=== PATIENT | male | born 1995 | race Caucasian/White ===

== ENCOUNTER 2023-01-30 23:01 | Emergency (ER) | payer MEDICARE, OTHER ==
[~2023-01-30 23:01] MED LIST: AMITRIPTYLINE H25 MG PO; CLONIDINE HCL0.1 MG; DEPAKOTE125 MG; WELLBUTRIN SR150 MG PO
--- OUTSIDE RECORDS SUMMARY | 2023-01-30 23:04 | XMS ---
PreManage Notification: NEELIMA TELLO Security Genomics Scientist Events No recent Security Events currently on file CRITERIA MET - RODNEYP CARE PROVIDERS -Zeeshan- Dentist: Registered Nurse Step Down [facility] PHONE: [phone] NADER WEST Nurse Practitioner: Family Current PHONE: Unknown Yi Gomez-Fern Nurse Practitioner: Current PHONE: [phone] Diego has no Care Guidelines for this patient. E.D. VISIT COUNT (12 MO.) 1 CHERELLE Rios TOTAL 1 NOTE: Visits indicate total known visits. ED/UCC VISIT TRACKING (12 MO.) 01/30/2023 23:02 CHERELLE Watson OR TYPE: Emergency COMPLAINT: - SOB AND NUMB HANDS AND FEET INPATIENT VISIT TRACKING (12 MO.) No inpatient visits to display in this time frame [email or web address]
[2023-01-30] MEDS ORDERED: PROPRANOLOL HCL10 MG PO (23:12)
[2023-01-30] MEDS ORDERED: DIAZEPAM2 MG PO (23:35)
[2023-01-31 00:10] VITALS: BP 134/87
--- NOTE | 2023-01-31 22:54 | EKG ---
[facility] [address] [facility] [place] [address] Signed Normal sinus rhythm Normal ECG No previous ECGs available Confirmed by Stephen Bowden MD () on 01/31/2023 10:54:46 PM Electronically Signed By: STEPHEN BOWDEN MD 01/31/23 2254 PATIENT NAME: NEELIMA TELLO Electrocardiogram DATE OF : [birth year] PHYSICIAN: STEPHEN BOWDEN MD REPORT #: [id number] REPORT IS CONFIDENTIAL AND NOT TO BE RELEASED WITHOUT AUTHORIZATION
== END 2023-01-31 00:11 | disposition home or self-care (01) ==
LOC: ED 23:01
DX: F41.0 Panic disorder [episodic paroxysmal anxiety] (principal); Z79.899 Other long term (current) drug therapy
CPT/HCPCS: 93005; 93010; 99283-25

== ENCOUNTER 2023-07-28 18:21 | Observation (INO) | payer MEDICARE, OTHER ==
[~2023-07-28] VITALS: Ht 172.7 cm; Wt 87.0 kg
[~2023-07-28 18:21] MED LIST changes: +DIAZEPAM2 MG PO; +PROPRANOLOL HCL10 MG PO
--- OUTSIDE RECORDS SUMMARY | 2023-07-28 18:24 | XMS ---
PreManage Notification: NEELIMA TELLO Security Hand Screen Printer Events No recent Security Events currently on file CRITERIA MET - PDMP CARE PROVIDERS -Wendy Dentist: Cocoa Bean Roaster [facility] PHONE: [phone] NADER WEST Nurse Practitioner: Family Current PHONE: Unknown Yi Gomez Nurse Practitioner: Family Current GREEN MARKETER-C PHONE: [phone] Diego has no Care Guidelines for this patient. E.D. VISIT COUNT (12 MO.) 2 CHERELLE Rios TOTAL 2 NOTE: Visits indicate total known visits. ED/UCC VISIT TRACKING (12 MO.) 07/28/2023 18:21 [facility] Watson OR TYPE: Emergency COMPLAINT: - STOMACH PAIN 01/30/2023 23:02 CH[facility]LE Watson OR TYPE: Emergency COMPLAINT: - SOB AND NUMB HANDS AND FEET DIAGNOSES: - Anxiety disorder, unspecified - Other rat exterminator (current) drug therapy - Panic disorder [episodic paroxysmal anxiety] INPATIENT VISIT TRACKING (12 MO.) No inpatient visits to display in this time frame [email or web address]
[2023-07-28 20:06] LABS: BASOPHILS 0.2 % (0-2); EOSINOPHILS 1.3 % (0-6); HEMATOCRIT 42.8 % (35.0-50.0); HEMOGLOBIN 14.7 g/dL (12.0-18.0); LYMPHOCYTES 21.1 % (24-44); MCH 29.6 (27-36); MCHC 34.3 g/dl (30-36); MCV 86.4 fl (81-99); MONOCYTES 8.7 % (0-12); NEUTROPHILS 68.7 % (39-80); PLATELET COUNT 204 K/uL (140-440); RBC 4.95 M/ul (4.3-5.7)
[2023-07-28 20:21] LABS: ALBUMIN 3.8 g/dL (3.4-5.0); ALBUMIN/GLOBULIN RATIO 1.09 (1.1-2.4); ANION GAP 12.7 (7-21); BILIRUBIN, TOTAL 0.7 ng/dL (0.2-1.0); BUN/CREATININE RATIO 8.04 (6.0-28.6); CALCIUM 8.8 mg/dL (8.5-10.1); CREATININE, SERUM 0.87 mg/dL (0.70-1.30); POTASSIUM 3.7 mmol/L (3.5-5.1); PROTEIN, TOTAL 7.3 g/dL (6.4-8.2)
[2023-07-28 21:38] VITALS: BP 124/74
[2023-07-28 21:41] LABS: INFLUENZA B NAA NEGATIVE (NEGATIVE); RESPIRATORY SYNCYTIAL VIR NAA NEGATIVE (NEGATIVE)
--- NOTE | 2023-07-28 21:45 | NUR ---
PATIENT ARRIVED TO THE FLOOR VIA WHEELCHAIR. PATIENTS VITALS TAKEN AND RECORDED. PATIENTS ADMISSION COMPLETED. PATIENT UPDATED ON PLAN OF CARE. PATIENT DENIES ANY COMMENTS, QUESTIONS, OR CONCERNS. NO NEEDS NOTED. CALL LIGHT IN REACH.
--- NOTE | 2023-07-28 22:10 | NUR ---
Patient up independently in the room without difficulty. States his pain and nausea are managed at this time, NPO per orders, IV LR @ 125/h, Requested and given Nicotine gum. VSS, RLQ abd tender, active BT's, Further assessment unremarkable, Resting in bed with headphones on and lights out, call light within reach.
[2023-07-29] VITALS (7 sets, daily range): BP systolic 103–113; BP diastolic 34–446
--- NOTE | 2023-07-29 00:39 | NUR ---
Patient resting, appears comfortable, lights remain out, call light within reach.
--- NOTE | 2023-07-29 02:06 | NUR ---
Patient lying with eyes closed, appears a sleep, appears comfortable, call light in reach, IV infusing without difficulty.
--- NOTE | 2023-07-29 03:02 | NUR ---
Patient awake and stating pain at a 7, medicated for discomfort, VSS, Remains npo. call light within reach.
--- NOTE | 2023-07-29 04:42 | NUR ---
Patient resting with eyes closed, RR=16, appears comfortable, call light within reach.
[2023-07-29 05:29] LABS: BASOPHILS 0.6 % (0-2); EOSINOPHILS 3.1 % (0-6); HEMATOCRIT 39.5 % (35.0-50.0); HEMOGLOBIN 13.3 g/dL (12.0-18.0); LYMPHOCYTES 44.6 % (24-44); MCH 29.4 (27-36); MCHC 33.7 g/dl (30-36); MCV 87.3 fl (81-99); MONOCYTES 9.3 % (0-12); NEUTROPHILS 42.4 % (39-80); PLATELET COUNT 184 K/uL (140-440); RBC 4.52 M/ul (4.3-5.7); RDW 13.2 (10.5-15.0)
[2023-07-29 05:47] LABS: ALBUMIN 3.3 g/dL (3.4-5.0); ALBUMIN/GLOBULIN RATIO 1.1 (1.1-2.4); ANION GAP 11.9 (7-21); BILIRUBIN, TOTAL 0.9 ng/dL (0.2-1.0); BUN/CREATININE RATIO 6.45 (6.0-28.6); CALCIUM 8.6 mg/dL (8.5-10.1); CREATININE, SERUM 0.93 mg/dL (0.70-1.30); POTASSIUM 3.9 mmol/L (3.5-5.1); PROTEIN, TOTAL 6.3 g/dL (6.4-8.2)
--- NOTE | 2023-07-29 06:34 | NUR ---
Patient as slept well, VSS, continues to have ride lower quad of abd. pain and has required one dose of IV morphine tonight, which patient states did help. Awiating void for urine sample, patient instructed to call when void complete. MD in to see patien this am and will be writting orders for planned surgert today for appy. Patient has been NPO since admit.
[2023-07-29 07:08] LABS: BILIRUBIN, URINE NEGATIVE (negative); BLOOD/HGB, URINE NEGATIVE (Negative); KETONE, URINE NEGATIVE (Negative); LEUK ESTERASE, URINE NEGATIVE (negative); NITRITE, URINE NEGATIVE (negative); PH, URINE 6.5 (5-7)
--- NOTE | 2023-07-29 07:09 | NUR ---
Urine sent to lab, IV fluids changed from LR to D5LR @ 100/h. Patient given chapstick for dry lips, remains NPO, patient comfortable at this time. call light in reach.
--- NOTE | 2023-07-29 07:33 | CONS ---
[facility] [address], [place] [address] Signed DATE OF CONSULTATION: 07/29/2023 CHIEF COMPLAINT: Periumbilical abdominal pain with nausea. HISTORY OF PRESENT ILLNESS: Vazquez is a 27-year-old young man, who is disabled from mental health issues. He lives with his mom in the apartment here in [place], [place]. He does have a half-sister. He had eaten at around 2200 hours at night. He had developed periumbilical abdominal pain. He finally came to emergency room for evaluation. His white count was 10, and his COVID was negative. CT scan showed his appendix a little dilated 9 mm. He did not seem to have obvious inflammatory changes or hyperemia. There was no periappendiceal inflammation. The ER doctor called me, we decided to admit him overnight for observation. He has done well, but this morning he now has pain localized to the right lower quadrant directly over the appendix. He said overall he feels a little better with the IV fluids. He did use some morphine in the middle of the night. PAST MEDICAL HISTORY: Anxiety, bipolar I with psychotic features, borderline personality disorder. PAST SURGICAL HISTORY: Includes wisdom teeth extractions without difficulties. SOCIAL HISTORY: He likes the vape nicotine. He does not drink. Adonay Gomez is his nurse practitioner. He also is a patient with [facility]. He is disabled due to mental health issues. He prefers the [facility]. He has a half-sister. He lives with his mother, Alecia Rodriguez at [phone]. They have an apartment. She is able to drive and has a car. She is retired from various labor jobs. FAMILY HISTORY: He said there was some cancer on his mom's side of the family. He does not really know his dad's side of family too well. REVIEW OF SYSTEMS: He had 10 systems reviewed. He told me about the wisdom teeth extraction, and his mental health issues. ALLERGIES: None. MEDICATIONS: Diazepam, amitriptyline bupropion, Depakote, clonidine and propranolol. Electronically Signed By: NEL ODELL MD 07/29/23 0733 PATIENT NAME: VAZQUEZ TELLO CONSULTATION DATE OF : [birth year] REPORT #: [id number] PHYSICIAN: NEL ODELL MD PCP: FREIDA GOMEZ REPORT IS CONFIDENTIAL AND NOT TO BE RELEASED WITHOUT AUTHORIZATION [facility] [address], [place] [address] Signed PHYSICAL EXAMINATION: VITAL SIGNS: His blood pressure is 103/46, heart rate 86, respiratory rate 16, his temperature is 97.9, he is 97% on room air, he is 5 feet 9 inches tall at 78 kg with a body mass index of 29. GENERAL: Vazquez is a 27-year-old young man, lying supine in his hospital bed with his ear phones on. He is alert, awake, and interactive. He is not systemically ill or toxic. He seems to be very cooperative and polite. Lungs: Clear to auscultation bilaterally. HEART: Regular rate and rhythm without murmurs. ABDOMEN: Soft and flat, but he is tender right over his appendix in the right lower quadrant. LABORATORY DATA: His white blood cell count was 10, is now down to 8. His hemoglobin was 14.7, it is down to 13. His neutrophils are 68, down to 42. Electrolytes and glucose are unremarkable. Liver function tests are unremarkable. Albumin is 3.3. It was 3.8. The COVID was negative. RADIOGRAPHIC STUDIES: The CT scan of abdomen and pelvis is reviewed including the report in the images. One could see this 9 mm appendix. The radiologist felt it was not inflamed or hyperemic. There was no periappendiceal inflammation. To me it seems slightly prominent. ASSESSMENT AND PLAN: Vazquez is a 27-year-old young man, who developed periumbilical abdominal pain now localized to the right lower quadrant. His white count is normal, but he is tender right over his appendix. His appendix is a little dilated at [address] scan. I brought Vazquez, a brochure on the appendix. We looked at that carefully page by page. We discussed the location and function of the appendix. We discussed laparoscopic versus open appendectomy. We have reviewed the expected intraop and postop course. There is risk including, but not limited to bleeding, infection, scarring, change in contour the skin, damage to bowel, appendiceal stump leak, postoperative intraabdominal abscess, incisional hernias and other unforeseen comorbidities. After a long discussion, he would like to proceed with removal of the appendix. We will go ahead and schedule that to follow later this morning. He has expressed understanding and agrees with the above plan. Nel Odell MD Electronically Signed By: NEL ODELL MD 07/29/23 0733 PATIENT NAME: VAZQUEZ TELLO CONSULTATION DATE OF : [birth year] REPORT #: [id number] PHYSICIAN: NEL ODELL MD PCP: FREIDA GOMEZ REPORT IS CONFIDENTIAL AND NOT TO BE RELEASED WITHOUT AUTHORIZATION [address] [place] [address] Signed ALB/MODL /[id number] cc: [facility] Patient Chart OLU Mcdonald MD Copies: NEL ODELL MD ~ Electronically Signed By: NEL ODELL MD 07/29/23 0733 PATIENT NAME: VAZQUEZ TELLO CONSULTATION DATE OF : [birth year] REPORT #: [id number] PHYSICIAN: NEL ODELL MD PCP: FREIDA GOMEZ REPORT IS CONFIDENTIAL AND NOT TO BE RELEASED WITHOUT AUTHORIZATION
--- NOTE | 2023-07-29 08:15 | NUR ---
UR NOTE [facility] MET ABDOMINAL PAIN, UNDIAGNOSED: OBSERVATION CARE (ISC) ON ADMIT 07/28/23
--- NOTE | 2023-07-29 08:18 | NUR ---
PATIENT LEFT THE MEDICAL FLOOR WITH SURGERY NURSE.
[2023-07-29] MEDS ORDERED: LORAZEPAM1 MG PO (09:07)
[2023-07-29] MEDS ORDERED: GABAPENTIN400 MG PO (09:09)
[2023-07-29] MEDS ORDERED: BUSPIRONE HCL10 MG PO (09:10)
[2023-07-29] MEDS ORDERED: BUPROPION XL300 MG PO (09:10)
[2023-07-29] MEDS ORDERED: DIVALPROEX SOD500 MG PO (09:10)
--- NOTE | 2023-07-29 09:59 | NUR ---
07/29/23 0959 Caro Garcia 0954 PT TO PACU SLEEPING O2 VIA MASK, FOGGING NOTED IN MASK.
--- NOTE | 2023-07-29 10:08 | NUR ---
PT GONE FROM ROOM. PRAYED FOR JAIN OF HEALTH AND ABIDING PEACE.
--- NOTE | 2023-07-29 11:11 | NUR ---
PATIENT ARRIVED BACK TO THE MEDICAL FLOOR. PATIENT DROWSY, EASILY WAKES TO VERBAL STIMULI, ANSWERS QUESTIONS APPRIOPRIATELY, A/O X4. PATIENT REPORTS 6/10 INCISIONAL PAIN, TOLERABLE HE REPORTS. IV FLUIDS STARTED PER PROVIDER ORDER. ABDOMINAL LAP SITES X3 NOTED; GAUZE CDI TO LAP SITES. BP SOFT-96/40, P80, MAP 54. SP02 93% ON ROOM AIR. BED ALARM INTACT. CONT SP02 INTACT. CALL LIGHT WITHIN REACH.
--- NOTE | 2023-07-29 11:31 | OR ---
[facility] [address], [place] [address] Signed DATE OF OPERATION: 07/29/2023 SURGEON: Nel Odell MD PREOPERATIVE DIAGNOSIS: Acute appendicitis. POSTOPERATIVE DIAGNOSIS: Acute inflamed appendicitis. PROCEDURE: Laparoscopic appendectomy. ESTIMATED BLOOD LOSS: None. INDICATIONS: Vazquez is a 27-year-old gentleman, who tells me he has rather significant bipolar 1 disorder with psychotic features along with borderline personality disorder. Because of this, he is disabled and he does live with his mother in an apartment here in [place], [place]. He had been doing well up until about a day and a half ago when he had eaten around 10 o'clock at night. He developed periumbilical abdominal pain and nausea. It began to localized to the right lower quadrant. He came to emergency room for evaluation. Vital signs were fine, but he is tender in the right lower quadrant right over his appendix. White count was 10, but this morning with hydration it was 8. The rest of his labs were fine. CT scan of the abdomen and pelvis showed a 9 mm appendix in the right lower quadrant without obvious inflammation or hyperemia. However, the appendix did seem a little prominent. We decided to admit him overnight and recheck him in the morning. This morning, he clearly has tenderness right over his appendix. I gave him our brochure on appendicitis. We looked at it page by page. We carefully reviewed the location and function of the appendix. We had discussed laparoscopic versus open appendectomy. He understands the expected intraop and postop course. We also reviewed the risk including, but not limited to bleeding, infection, scarring, change in contour of the skin, damage to bowel, appendiceal stump leak, postoperative intra-abdominal abscess, incisional hernias and other unforeseen comorbidities. He had expressed understanding and wished to proceed. PROCEDURE NOTE: Vazquez was taken into our operating room and placed in the supine position under general endotracheal tube anesthesia. He was given preoperative antibiotics along with Electronically Signed By: NEL ODELL MD 07/29/23 1131 PATIENT NAME: VAZQUEZ TELLO OPERATIVE REPORT DATE OF : [birth year] REPORT #: [id number] PHYSICIAN: NEL ODELL MD PCP: YI GOMEZ REPORT IS CONFIDENTIAL AND NOT TO BE RELEASED WITHOUT AUTHORIZATION [facility] [address], [place] [address] Signed subcutaneous Lovenox. SCDs were utilized. A Naidu catheter was inserted with return of clear yellow urine without difficulty. He was then prepped and draped in the usual sterile fashion. All trocars were placed in their usual positions under direct visualization of the camera without difficulty. We could easily see the appendix coming off into the cecum. It was clearly normal at the base, but the distal 3/4th of the appendix was obviously thickened, injected and inflamed. We cleared off the base of the appendix with the cautery and divided the appendix from the cecum with the help of our linear stapler. We then used the vascular load on linear stapler to divide the mesoappendix. Hemostasis was excellent on both staple lines. The appendix was placed into an EndoCatch bag and taken out through the right subcostal trocar site. After this, we used our laparoscopic suturing device to close the fascia of the right subcostal trocar site with 0-Vicryl suture. All the gas was allowed to escape and the appendix had been passed off the table for photodocumentation. We then closed the supraumbilical trocar site with interrupted [id number] and 0-Vicryl sutures. Local anesthetic was copiously injected into all trocar sites. Each trocar site was irrigated and suctioned out until clear. The skin and dermis of each trocar site was closed with interrupted 3-0 subcuticular Monocryl sutures. Dry gauze and tape was then applied to all three incisions. The Naidu catheter was removed without difficulty. Vazquez was awakened from his anesthesia, extubated in the OR, and taken to recovery room in stable condition. Nel Odell MD [facility] /[id number] cc: Yi Gomez NP Nel Odell MD Electronically Signed By: NEL ODELL MD 07/29/23 1131 PATIENT NAME: VAZQUEZ TELLO OPERATIVE REPORT DATE OF : [birth year] REPORT #: [id number] PHYSICIAN: NEL ODELL MD PCP: YI GOMEZ REPORT IS CONFIDENTIAL AND NOT TO BE RELEASED WITHOUT AUTHORIZATION [address] [address] Signed Copies: NEL ODELL MD ~ Electronically Signed By: NEL ODELL MD 07/29/23 1131 PATIENT NAME: VAZQUEZ TELLO OPERATIVE REPORT DATE OF : [birth year] REPORT #: [id number] PHYSICIAN: NEL ODELL MD PCP: YI GOMEZ REPORT IS CONFIDENTIAL AND NOT TO BE RELEASED WITHOUT AUTHORIZATION
--- NOTE | 2023-07-29 11:52 | NUR ---
PATIENT ALERT, SITTING IN BED. STATES HE LIVES IN AN APARTMENT. SOME STAIRS, NO DIFFICULTY NAVIGATING STAIRS. DENIES DME USE OR NEED. STATES HE STILL DRIVES, WILL NEED FAMILY TO PROVIDE TRANSPORT AT [place]. DENIES FINANCIAL HARDSHIP. ABLE TO GET FOOD/MEDICATIONS, ETC. WITHOUT DIFFICULTY. DEMOGRAPHICS VERIFIED WITH PATIENT.
--- NOTE | 2023-07-29 12:01 | NUR ---
MED REC COMPLETE
[2023-07-29] MEDS ORDERED: HYDROCODON-ACE1 EAC8 PO (12:06)
--- NOTE | 2023-07-29 13:24 | NUR ---
ADMIN DILAUDID 0.3MG IV AT THIS TIME FOR REPORTS OF 7/10 INCISIONAL ABD PAIN.
--- NOTE | 2023-07-29 14:40 | NUR ---
ADMIN ONE TAB NORCO 5/325MG PO FOR REPORTS OF 7/10 INCISIONAL PAIN.
--- NOTE | 2023-07-29 15:44 | NUR ---
PATIENT AMBULATED WITH STREET WORKER. REPORTS 8/10 PAIN AFTER WALK BUT DECLINES PAIN MEDICINE. RESTING IN BED AT THIS TIME. CALL LIGHT AND WATER WITHIN REACH. BED IN LOWEST POSITION.
--- NOTE | 2023-07-29 16:00 | NUR ---
PATIENT AMBULATING [place] WITH THIS WAXER, PATIENT TOLERATING WELL. BACK TO ROOM, LINEN CHANGED AND PATIENT HAD LRGE VOID. PATIENT BACK INTO BED AT THIS TIME. CALL LIGHT AND PERSONAL ITEMS IN CLOSE REACH
--- NOTE | 2023-07-29 16:17 | NUR ---
PATIENT AMBULATED IN HALLWAY, X1 LAP, TOLERATED WELL. PATIENT PROVIDED WITH NICOTINE GUM PER HIS REQUEST. PATIENT REPORTS 5/10 ABD PAIN, HE DECLINED PAIN MEDICATION AT THIS TIME. VITAL SIGNS REMAIN STABLE. CALL LIGHT WITHIN REACH.
--- NOTE | 2023-07-29 16:45 | NUR ---
PATIENT REQUESTING TO DISCHARGE HOME HE REPORTS HE IS FEELING WELL. PATIENT REPORTS TOLERABLE PAIN, NO NAUSEA AND HAS ATE/VOIDED WITHOUT DIFFICULTY. CALLED DR. ODELL REGARDING PLAN OF CARE. PER DR. ODELL, PATIENT IS ABLE TO DISCHARGE HOME AT THIS TIME.
--- NOTE | 2023-07-29 17:11 | NUR ---
Patient ambulated twice around the unit without difficulty. States his pain is manageable after activity. Asked if he could get dressed and ready to go. ALAN Natarajan will call the provider and discuss discharge.
--- NOTE | 2023-08-02 17:49 | PATH ---
[facility] [address] [facility] [place] [place] [address] Signed SPECIMEN(S): A APPENDIX SPECIMEN SOURCE: A. APPENDIX CLINICAL HISTORY: Abdominal pain; dilated appendix FINAL PATHOLOGIC DIAGNOSIS: Appendix, appendectomy: - Acute suppurative appendicitis, periappendicitis and serositis. JVR:kunal MICROSCOPIC EXAMINATION: Histologic sections of all submitted blocks are examined by light microscopy. These findings, together with the gross examination, support the pathologic diagnosis. GROSS DESCRIPTION: The specimen, labeled and designated "[place], appendix," is received in formalin and consists of Specimen: Appendix with mesoappendix. Dimensions: 6.5 x 0.8 cm. Serosa: Violaceous, focally congested. Defect: Not grossly identified. Inking: Staple line is inked black. Mucosa: [place]. Fecalith: Not grossly identified. Additional: None. Manufacturing Maintenance Mechanic sections are submitted in (A1). JS (under the direct supervision of a pathologist) The Gross Description was prepared using a voice recognition system. The report was reviewed for accuracy; however, sound-alike word errors, addition and/or deletions may occur. If there is any question about this report, please contact Client Services. PERFORMING LABORATORY: Technical component was performed by [facility], [address] [place] [id number] (CLIA# [id number]). Professional interpretation was performed by [facility], [address] [place] [address], [place] [address] (CLIA#: [id number]). PATIENT NAME: NEELIMA TELLO PATHOLOGY DATE OF : [birth year] REPORT #: [id number] PHYSICIAN: KIRSTEN PATHOLOGY PCP: FREIDA WALKER REPORT IS CONFIDENTIAL AND NOT TO BE RELEASED WITHOUT AUTHORIZATION [address] [place] [address] Signed Diagnostician: Anatoly Waldron MD Pathologist Electronically Signed 08/02/2023 Copies: ~ PATIENT NAME: NEELIMA TELLO PATHOLOGY DATE OF : [birth year] REPORT #: [id number] PHYSICIAN: KIRSTEN PATHOLOGY PCP: FREIDA WALKER REPORT IS CONFIDENTIAL AND NOT TO BE RELEASED WITHOUT AUTHORIZATION
== END 2023-07-29 17:30 | disposition home or self-care (01) ==
LOC: ED 18:21 → MS 18:22
PROVIDERS: Family Medicine; ADMIT Colon & Rectal Surgery; ATTEND Colon & Rectal Surgery
PROC: 0DTJ4ZZ Resection of Appendix, Percutaneous Endoscopic Approach (ICD-10-PCS; principal; 2023-07-28)
DX: K35.30 Acute appendicitis with localized peritonitis, without perforation or gangrene (principal)
CPT/HCPCS: 00840; 36415; 36600; 74177; 80053; 81003; 85025; 87502; 88304; 96372; 96375; 96376; C9803; G0378; J0330; J0696; J1100; J1170; J1650; J1885; J2250; J2270; J2405; J2704; J2765; J3010; J3490; J7030; J7121; Q9967; U0002

== ENCOUNTER 2023-08-01 15:21 | Emergency (ER) | payer MEDICARE, OTHER ==
[~2023-08-01] VITALS: Ht 172.7 cm; Wt 87.4 kg
[~2023-08-01 15:21] MED LIST changes: +BUPROPION XL300 MG PO; +BUSPIRONE HCL10 MG PO; +DIVALPROEX SOD500 MG PO; +GABAPENTIN400 MG PO; +HYDROCODON-ACE1 EAC8 PO; +LORAZEPAM1 MG PO
--- OUTSIDE RECORDS SUMMARY | 2023-08-01 15:25 | XMS ---
PreManage Notification: NEELIMA TELLO Security Consultative Sales Associate Events No recent Security Events currently on file CRITERIA MET - [facility] - [facility] - 2 Visits in 30 Days CARE PROVIDERS -Zeeshan- Dentist: Engineering Consultant [facility] PHONE: [phone] NADER WEST Nurse Practitioner: Family Current PHONE: Unknown Yi Gomez Nurse Practitioner: Family Current INJECTION MOLDING TECHNICIAN-C PHONE: [phone] Diego has no Care Guidelines for this patient. E.D. VISIT COUNT (12 MO.) [address] [facility] TOTAL 3 NOTE: Visits indicate total known visits. ED/UCC VISIT TRACKING (12 MO.) 08/01/2023 15:21 [facility] OR TYPE: Emergency COMPLAINT: - WOUND CHECK 07/28/2023 18:21 [facility] OR TYPE: Emergency COMPLAINT: - STOMACH PAIN 01/30/2023 23:02 [facility] Watson OR TYPE: Emergency COMPLAINT: - SOB AND NUMB HANDS AND FEET DIAGNOSES: - Anxiety disorder, unspecified - Other residential (current) drug therapy - Panic disorder [episodic paroxysmal anxiety] INPATIENT VISIT TRACKING (12 MO.) 07/28/2023 18:22 CHERELLE Watson OR TYPE: Observation COMPLAINT: - PERIUMBILICAL PAIN [email or web address]
[2023-08-01 16:19] VITALS: BP 136/91
== END 2023-08-01 16:19 | disposition home or self-care (01) ==
LOC: ED 15:21
DX: Z48.01 Encounter for change or removal of surgical wound dressing (principal); Z79.899 Other long term (current) drug therapy; Z98.890 Other specified postprocedural states
CPT/HCPCS: 99282

== ENCOUNTER 2023-08-13 23:10 | Emergency (ER) | payer MEDICARE, OTHER ==
--- OUTSIDE RECORDS SUMMARY | 2023-08-13 23:12 | XMS ---
PreManage Notification: NEELIMA TELLO Security Substance Abuse Specialist Events No recent Security Events currently on file CRITERIA MET - [facility] - [facility] - 2 Visits in 30 Days CARE PROVIDERS -Zeeshan- Dentist: Stock Parts Inspector Replaced By [facility] PHONE: [phone] NADER WEST Nurse Practitioner: Family Current PHONE: Unknown Yi Gomez Nurse Practitioner: Family Current HIGH SCHOOL COMBINATION TEACHER-C PHONE: [phone] Diego has no Care Guidelines for this patient. E.D. VISIT COUNT (12 MO.) [address] [facility] TOTAL 4 NOTE: Visits indicate total known visits. ED/UCC VISIT TRACKING (12 MO.) 08/13/2023 23:11 [facility] OR TYPE: Emergency COMPLAINT: - CHEST PAIN, HEART RATE ISSUES 08/01/2023 15:21 [facility] OR TYPE: Emergency COMPLAINT: - WOUND CHECK DIAGNOSES: - Encounter for change or removal of surgical wound dressing - Other superintendent terminal (current) drug therapy - Other specified postprocedural states 07/28/2023 18:21 [facility] [place] TYPE: Emergency COMPLAINT: - STOMACH PAIN 01/30/2023 23:02 [facility] OR TYPE: Emergency COMPLAINT: - SOB AND NUMB HANDS AND FEET DIAGNOSES: - Anxiety disorder, unspecified - Other detention (current) drug therapy - Panic disorder [episodic paroxysmal anxiety] INPATIENT VISIT TRACKING (12 MO.) 07/28/2023 18:22 [facility] Watson OR TYPE: Observation COMPLAINT: - PERIUMBILICAL PAIN DIAGNOSES: - Acute appendicitis with localized peritonitis, without perforation or gangrene - Encounter for screening for COVID-19 - Unspecified acute appendicitis [email or web address]
[2023-08-14 00:13] VITALS: BP 136/84
--- NOTE | 2023-08-14 22:36 | EKG ---
[facility] [address] [facility] [place] [address] Signed Sinus tachycardia Otherwise normal ECG When compared with ECG of 30-JAN-2023 23:21, No significant change was found Confirmed by Stephen Bowden MD () on 08/14/2023 10:36:23 PM Electronically Signed By: STEPHEN BOWDEN MD 08/14/23 223 PATIENT NAME: NEELIMA TELLO Electrocardiogram DATE OF : [birth year] PHYSICIAN: STEPHEN BOWDEN MD REPORT #: [id number] REPORT IS CONFIDENTIAL AND NOT TO BE RELEASED WITHOUT AUTHORIZATION
== END 2023-08-14 00:14 | disposition home or self-care (01) ==
LOC: ED 23:10
DX: F41.9 Anxiety disorder, unspecified (principal); Z98.890 Other specified postprocedural states; Z79.899 Other long term (current) drug therapy
CPT/HCPCS: 93005; 93010; 99283-25

== ENCOUNTER 2025-05-17 22:41 | Emergency (ER) | payer MEDICARE, OTHER ==
[~2025-05-17] VITALS: Ht 172.7 cm; Wt 88.0 kg
[2025-05-17 23:00] LABS: BASOPHILS 0.8 % (0.2-1.2); EOSINOPHILS 5.6 % (0.8-7.0); LYMPHOCYTES 37.8 % (21.8-53.1); MCH 28.9 PG (25.7-32.2); MCHC 33.8 g/dL (32.3-36.5); MCV 85.7 fL (79.0-92.2); MONOCYTES 5.4 % (5.3-12.2); NEUTROPHILS 50.3 % (34.0-67.9); RBC 5.32 M/uL (4.63-6.08)
[2025-05-17] MEDS ORDERED: ASPIRIN 81 MG CHEW PO ONE (23:00)
[2025-05-17 23:18] LABS: ALT (SGPT) 36.0 U/L (14-59); AST (SGOT) 20.0 U/L (15-37); GLOMERULAR FILTRATION RATE,EST 96.0 mL/min (>60); PROTEIN, TOTAL 7.4 g/dL (6.4-8.2); UREA NITROGEN 13.0 mg/dL (7-18)
[2025-05-18 00:46] VITALS: BP 127/72
--- NOTE | 2025-05-18 23:13 | EKG ---
[facility] [address] [facility] [place] [address] Signed Normal sinus rhythm Normal ECG When compared with ECG of 13-AUG-2023 23:17, No significant change was found Confirmed by Stephen Bowden MD () on 05/18/2025 11:13:12 PM Electronically Signed By: STEPHEN BOWDEN MD 05/18/25 2313 PATIENT NAME: NEELIMA TELLO LISSETTE Electrocardiogram DATE OF : [birth year] PHYSICIAN: STEPHEN BOWDEN MD REPORT #: [id number] REPORT IS CONFIDENTIAL AND NOT TO BE RELEASED WITHOUT AUTHORIZATION
== END 2025-05-18 00:47 | disposition home or self-care (01) ==
LOC: ED 22:41
PROVIDERS: Internal Medicine
DX: R00.2 Palpitations (principal); Z79.899 Other long term (current) drug therapy
CPT/HCPCS: 36415; 71045; 80053; 83735; 84443; 84484; 85025; 93005; 93010; 93242; 93244; 99285-25; A9270